=== PATIENT | female | born 1965 | race Caucasian/White ===

== ENCOUNTER 2017-12-25 18:32 | Emergency (ER) | payer OTHER ==
[~2017-12-25] VITALS: Ht 165.1 cm; Wt 68.0 kg
[2017-12-25 18:57] LABS: BASOPHILS # (AUTO) 0.1 /CMM (0.0-0.2); BASOPHILS % (AUTO) 0.9 % (0.0-2.0); EOSINOPHILS % (AUTO) 3.8 % (0.0-6.0); HEMATOCRIT 39 % (33-45); HEMOGLOBIN 13.1 g/dL (11.5-14.8); LYMPHOCYTES % (AUTO) 49.3 % (20.0-44.0); MEAN CORPUSCULAR HEMOGLOBIN 32 PG (26.0-33.0); MEAN CORPUSCULAR HGB CONC 34 g/dl (31.0-36.0); MEAN CORPUSCULAR VOLUME 93 fL (82-100); MONOCYTES # (AUTO) 0.5 /CMM (0.1-1.30); MONOCYTES % (AUTO) 8.7 % (2.0-12.0); NEUTROPHILS # (AUTO) 2.3 /CMM (1.8-8.9); NEUTROPHILS % (AUTO) 37.3 % (43.0-81.0); PLATELET COUNT (AUTO) 292 /CMM (150-450); RDW COEFFICIENT OF VARIATION 12.9 (11.5-15.0); RED BLOOD CELL COUNT(AUTO) 4.14 MIL/uL (4.0-5.2); WHITE BLOOD COUNT (AUTO) 6.1 K/uL (4.3-11.0)
[2017-12-25 19:08] LABS: CALCIUM, SERUM 8.4 mg/dL (8.5-10.1); CREATININE 0.5 mg/dL (0.6-1.3); POTASSIUM 3.5 mmol/L (3.5-5.1)
--- NOTE | 2017-12-25 19:11 | NUR ---
REPORT RECEIVED FROM FIRST SHIFT FOR [facility].
[2017-12-25 19:15] LABS: ALBUMIN 3.5 g/dL (3.4-5.0); BILIRUBIN,DIRECT 0.1 mg/dL (0.0-0.2); BILIRUBIN,TOTAL 0.2 mg/dL (0.2-1.0); TOTAL PROTEIN, SERUM 7.5 g/dL (6.4-8.2)
[2017-12-25 19:16] LABS: SALICYLATE 2.4 mg/dL (2.8-20.0)
--- NOTE | 2017-12-25 19:28 | NUR ---
URINE SPECIMEN OBTAINED AND SENT TO THE LAB.
[2017-12-25 19:48] LABS: APPEARANCE,URINE Clear (CLEAR); BILIRUBIN,URINE Negative (NEGATIVE); BLOOD, URINE Trace-lysed Ery/uL (NEGATIVE); COLOR,URINE Yellow (YELLOW); KETONES,URINE Negative (NEGATIVE); LEUKOCYTE ESTERASE ,URINE Negative (NEGATIVE); NITRITE, URINE Negative (NEGATIVE); PROTEIN,URINE Negative (NEGATIVE); UGLUCOSE Negative (NEGATIVE); UROBILINOGEN,URINE 0.2 EU/dL (0.2)
--- NOTE | 2017-12-25 19:59 | NUR ---
CALLED [employer] AND SPOKE TO [employer] AND UNLOADER LAY. RELAYED ALL INFO TO DR VERDIN
[2017-12-25 20:07] LABS: BACTERIA,URINE None seen /HPF (None Seen); RBC,URINE 0-2 /HPF (0-2); SQUAMOUS EPITHELIAL CELL,UR None Seen /HPF (None Seen); WBC,URINE NONE SEEN /HPF (0-3)
--- NOTE | 2017-12-25 22:03 | NUR ---
CALLED [employer]PER[employer] MEAGHAN HURD AND WAS TOLD HE WOULD BE HERE WITHIN THE HOUR
--- NOTE | 2017-12-25 22:42 | NUR ---
PT AOX4, VSS. AWAITING ART FOR PSYC EVAL.
--- NOTE | 2017-12-26 00:48 | NUR ---
PT CLEARED BY ART, PT GIVEN REFERRALS AND PENDING DISCHARGE.
--- NOTE | 2017-12-26 01:02 | NUR ---
Patient discharged by taxi to home in stable condition. Written and verbal after care instructions given. Patient verbalizes understanding of instruction, patient instructed not to drive. Patient is awake and alert to self, day, and place. Patient ambulatory with a steady gait.
[2017-12-26 01:04] VITALS: BP 124/76
== END 2017-12-26 01:04 | disposition home or self-care (01) ==
LOC: ER 18:32
DX: T39.1X2A Poisoning by 4-Aminophenol derivatives, intentional self-harm, initial encounter (principal); Y92.89 Other specified places as the place of occurrence of the external cause
CPT/HCPCS: 36415; 80048-TC; 80076-TC; 80305; 81000-TC; 84703-TC; 85025-TC; A4606; G0480; Z7610